=== PATIENT | female | born 1970 | race Caucasian/White ===

== ENCOUNTER 2022-02-26 08:58 | Outpatient (CLI) | payer OTHER, SELFPAY ==
[2022-02-26 14:51] LABS: Cholesterol* 228 mg/dL (90-199); HDL Cholesterol* 59 mg/dL (>=50); LDL Cholesterol Calculated 143 mg/dL (<100); Triglycerides* 129 mg/dL (40-149)
[2022-02-27 08:57] LABS: Glucose* 99 mg/dL (60-115)
== END 2022-02-26 08:59 | disposition home or self-care (01) ==
PROVIDERS: Visit Provider Obstetrics & Gynecology
DX: Z01.419 Encounter for gynecological examination (general) (routine) without abnormal findings (principal); Z12.4 Encounter for screening for malignant neoplasm of cervix; Z13.29 Encounter for screening for other suspected endocrine disorder; Z13.1 Encounter for screening for diabetes mellitus
CPT/HCPCS: 80061; 82947; 84443; 87624; 88175

== ENCOUNTER 2022-05-01 14:11 | Outpatient (CLI) | payer OTHER, SELFPAY ==
--- NOTE | 2022-05-01 14:40 | CRLHL7_ITS ---
For Patients: As a result of the Century Cures Act, medical imaging exams and procedure reports are released immediately into your electronic medical record. You may view this report before your referring provider. If you have questions, please contact your health care provider. BILATERAL SCREENING MAMMOGRAM WITH COMPUTER-AIDED DETECTION TECHNIQUE: CC and MLO views were obtained. These mammographic images have been obtained using full-field digital technique. These mammographic images were interpreted with the benefit of computer-aided detection. COMPARISON FILM: 06/15/16, 09/21/10. FINDINGS: The breasts are heterogeneously dense, which may obscure small masses IMPRESSION: There is no radiographic evidence for malignancy. ASSESSMENT: BI-RADS Category 2: Benign RECOMMENDATION: Routine screening mammogram in 1 year. A lay language report of this examination will be provided to the patient. Madan Galdamez M.D. Diagnostic Radiologist [email or web address] Transcribed: 7:23 p.m. SARA/Dictated by: Madan Galdamez MD @ 05/02/2022 10:24:00 AM (Electronically Signed)
== END 2022-05-01 14:12 | disposition home or self-care (01) ==
PROVIDERS: Visit Provider Obstetrics & Gynecology
DX: Z12.31 Encounter for screening mammogram for malignant neoplasm of breast (principal); R92.2 Inconclusive mammogram
CPT/HCPCS: 77063; 77067

== ENCOUNTER 2022-06-06 08:14 | Outpatient (CLI) | payer OTHER, SELFPAY ==
[2022-06-06 14:01] LABS: Chloride* 107 mmol/L (96-114); Potassium* 4.7 mmol/L (3.6-5.1); Sodium* 140 mmol/L (135-149)
[2022-06-06 14:03] LABS: Creatinine* 0.7 mg/dL (0.5-1.5); Estimated Glomerular Filt Rate 106 ml/min
[2022-06-06 14:04] LABS: Blood Urea Nitrogen* 13 mg/dL (5-24); Calcium* 8.9 mg/dL (8.4-10.6); Carbon Dioxide* 28 mmol/L (20-32); Glucose* 85 mg/dL (60-115)
== END 2022-06-06 08:15 | disposition home or self-care (01) ==
LOC: LKVREF 08:15
PROVIDERS: Visit Provider Emergency Medicine
DX: Z01.818 Encounter for other preprocedural examination (principal)
CPT/HCPCS: 80048

== ENCOUNTER 2022-06-19 08:01 | Day surgery (SDC) | payer OTHER, SELFPAY ==
[2022-06-19] VITALS (8 sets, daily range): BP systolic 91–129; BP diastolic 62–87; PULSE 75–88; RESP 16; TEMP 36.4–36.7; O2SAT 94–98; BMI 32.2
[2022-06-19 08:33] LABS: Ur HCG Qualitative* Negative (Negative)
[2022-06-19] MEDS: LACTATED RINGERS 1000 ML 1,000 ML 100 ML IV (08:35)
[2022-06-19] MEDS: SODIUM CHLORIDE 0.9 % (FLUSH) 10 ML SYRINGE IVF (08:35)
--- NOTE | 2022-06-19 08:39 | SUR.PREOP ---
HOME COVID TEST NEGATIVE.
--- NOTE | 2022-06-19 10:25 | P.PCN_ITS ---
Procedure Note Time Seen by Provider: 10:25 Date Seen: 06/19/22 Date of procedure: 06/19/22 Will [facility] bill your pro fee for this procedure?: Yes Procedure: Preoperative diagnosis: 51-year-old 4 para 4 with * stress urinary incontinence. Postoperative diagnosis: Same Procedures: Transobturator, sub-uretrhal sling placement (TOT). Using Karen sling. Anesthesia: MAC and local. Surgeon: Debbie Barron MD Quality Compliance Manager :N/A Estimated blood loss: 300 ml IV Fluid: 1,400 ml Drains: none Specimen: none Complications: None Findings: On exam under anesthesia the external genitalia, urethral meatus, Conyngham's and Bartholin's glands all appear normal. On diagnostic cystoscopy after placement of the sling there was no evidence of urethral or bladder injury. Procedure: Winston was taken to the operating room where conscious sedation was found to be adequate. The patient was placed in the high Grewal's position. Martell catheter was in place. A skin marker was used to emily on the area where the tr ocars were going to be placed. This is at the level of the clitoris and bilateral groin folds. 0.25% Marcaine with epinephrine was used for local for this procedure. 10 mL was injected in the incisions at each of the groin folds. A weighted speculum was placed in the vagina. 10 mL of the Marcaine with epinephrine was injected in the anterior aspect of the vaginal canal over the mid urethral area. Punch incisions were made in the groin fold valencia. A 2 cm vertical incision was made in the vaginal mucosa. The mucosa was grasped with 2 Allis clamps 1 on each side of the incision. The vaginal mucosa was then undermined using Metzenbaum scissors toward the inferior aspect of the patient's pubic bone bilaterally. The left Karen (TOT) trocar was placed without difficulty and the Karen sling attached to it. The right trocar was then placed without difficulty and the right side of the sling attached to this trocar. Both trocars were used to pull the sling through the incision the groin incisions. A #9 Hegar cervical dilator was placed between the sling and the urethral mucosa to prevent the sling from being tightened too much. The Martell catheter was removed briefly, a diagnostic cystoscopy was performed using saline as the insufflation medium. The bladder and urethra shortness of no evidence of injury from sling placement. The cystoscope was removed and the Martell catheter replaced after Betadine was applied to the urethral meatus to drain cystoscopy fluid then the catheter was removed. The trocars were removed by cutting the sling just above the groin incisions. The overlying plastic removed and the remaining sling was then trimmed so the edge was below the skin. The groin skin incisions were repaired using Exofin skin adhesive. The vaginal incision was repaired using 2-0 Vicryl in a running locked manner. Excellent hemostasis was noted. The patient tolerated these procedures well. Sponge, lap and instrument counts were correct x2 at the end of the procedure and the patient was taken to the recovery area in stable condition. She received 2 g IV Ancef prior to the start of the procedure. Surgeon: Debbie Barron MD
--- NOTE | 2022-06-19 11:03 | W.ANESCHARGE ---
Anesthesia Charges Start Date/Time Anesthesia Start Date: 06/19/22 Anesthesia Start Time: 10:37 Stop Date/Time Anesthesia Stop Date: 06/19/22 Anesthesia Stop Time: 11:26 Summary Emergency: No
--- NOTE | 2022-06-19 11:42 | SUR.PHASEII ---
300CC SALINE INSTILLED INTO BLADDER AT 1134 PER SURGEON'S ORDER
[2022-06-19] MEDS: ONDANSETRON ODT 4 MG TAB PO (12:30)
--- NOTE | 2022-06-19 12:37 | SUR.PHASEII ---
PATIENT VOIDED 500CC AFTER 30 MINUTES OF INSTILLATION OF SALINE INTO BLADDER.
--- NOTE | 2022-06-19 12:37 | SUR.PHASEII ---
PATIENT NAUSEATED AT 1230. GAVE ZOFRAN. NO EMESIS.
== END 2022-06-19 12:56 | disposition home or self-care (01) ==
PROVIDERS: Visit Provider Obstetrics & Gynecology
PROC: (CPT 57288; principal; 2022-06-19 11:00)
DX: N39.3 Stress incontinence (female) (male) (principal)
CPT/HCPCS: 57288; 00860; 81025; A4344; A9270; C1771; J2250; J2704; J3010; J7120

== ENCOUNTER 2022-07-05 08:28 | Outpatient (CLI) | payer OTHER, SELFPAY ==
[2022-07-05 15:37] LABS: Chloride* 106 mmol/L (96-114); Potassium* 4.2 mmol/L (3.6-5.1); Sodium* 141 mmol/L (135-149)
[2022-07-05 15:40] LABS: Blood Urea Nitrogen* 11 mg/dL (5-24); Carbon Dioxide* 28 mmol/L (20-32); Creatinine* 0.7 mg/dL (0.5-1.5); Estimated Glomerular Filt Rate 106 ml/min; Glucose* 92 mg/dL (60-115)
== END 2022-07-05 08:29 | disposition home or self-care (01) ==
LOC: LKVREF 08:29
PROVIDERS: PCP Emergency Medicine; Visit Provider Emergency Medicine
DX: Z01.818 Encounter for other preprocedural examination (principal)
CPT/HCPCS: 80048